=== PATIENT | female | born 1995 | race Caucasian/White ===

== ENCOUNTER 2018-11-07 08:53 | Emergency (ER) | payer OTHER ==
[~2018-11-07] VITALS: Ht 165.1 cm; Wt 129.8 kg
[~2018-11-07 08:53] MED LIST: LEVA15HF6 IH; NORE-92 PO
[2018-11-07 09:10] VITALS: Ht 165.1 cm; Wt 129.8 kg
[2018-11-07] MEDS ORDERED: ALBUTEROL 0.083% (NEB) 2.5 MG/3 ML AMP HHN STA (10:01)
[2018-11-07] MEDS ORDERED: IPRATROPIUM (NEB) 0.5 MG/2.5 ML AMP HHN ONE (10:30)
[2018-11-07] MEDS ORDERED: DEXAMETHASONE 10 MG/ML 1 ML INJ IM ONE (10:30)
[2018-11-07] MEDS ORDERED: CEFTRIAXONE 1 GM INJ IM ONE (12:30)
[2018-11-07] MEDS ORDERED: LIDOCAINE 1% (MPF) 5 ML VIAL INJ ONE (12:30)
[2018-11-07] MEDS ORDERED: MED4DP PO (13:20)
[2018-11-07] MEDS ORDERED: CIPR500T4 PO (13:20)
[2018-11-07] MEDS ORDERED: ALBU8.5H8 INH (13:20)
[2018-11-07] MEDS ORDERED: NORE-92 PO (13:20)
[2018-11-07 13:24] VITALS: BP 144/82; PULSE 72; RESP 20
--- NOTE | 2018-11-07 13:27 | ERD ---
ER Documentation Chief Complaint Chief Complaint Complains of vag bleed with SOB x 1 week HPI 22-year-old female presenting with vaginal bleeding with shortness of breath. Patient states that she has had vaginal bleeding on and off for the last few weeks with passing clots. She has some diffuse pain no lateralized pain. She does not think she is . Patient is also complaining of bronchitis with shortness of breath. She is currently taking azithromycin with no alleviation and denies any fevers. No history of asthma. Denies medical problems. NKDA. Surgical history denies. Social history denies ROS All systems reviewed and are negative except as per history of present illness. Medications Home Meds Active Scripts Norethindrone AC-Eth Estradiol (Loestrin 21 1-20 Tablet) 1 Each Tablet, 1 EACH PO DAILY, #28 TAB Prov:MASSIMO KNOTT PA-C 11/07/18 Methylprednisolone* (Medrol* DOSE PACK) 4 Mg/Dose-Pack Tab.ds.pk, 4 MG PO . DIRECTED, #1 PACKET Prov:MASSIMO KNOTT PA-C 11/07/18 Albuterol Sulfate* (Proair HFA*) 8.5 Gm Hfa.aer.ad, 2 PUFF INH Q4, #1 INHALER Prov:MASSIMO KNOTT PA-C 11/07/18 Ciprofloxacin Hcl* (Ciprofloxacin Hcl*) 500 Mg Tablet, 500 MG PO BID for 7 Days, TAB Prov:MASSIMO KNOTT PA-C 11/07/18 Norethindrone A-E Estradiol (Loestrin) 1 Tab Tablet, 1 TAB PO DAILY, #30 TAB 3 packs Prov:MC OSWALD MD 06/17/15 Reported Medications Levalbuterol* (Xopenex* HFA) 15 Gm Inha, 15 GM IH PRN 05/27/11 Allergies Allergies: Coded Allergies: No Known Allergy (Unverified , 05/11/14) PMhx/Soc History of Surgery: Yes (Ear ) Anesthesia Reaction: No Hx Neurological Disorder: No Hx Respiratory Disorders: No Hx Cardiac Disorders: No Hx Psychiatric Problems: No Hx Miscellaneous Medical Probl: No Hx Alcohol Use: No Hx Substance Use: No Hx Tobacco Use: No FmHx Family History: No diabetes, No coronary disease, No other Physical Exam Vitals Vital Signs Date Temp Pulse Resp B/P (MAP) Pulse Ox O2 O2 Flow FiO2 Time Delivery Rate 11/07/18 79 20 95 21 10:35 11/07/18 98.0 74 20 181/84 97 09:10 (116) Physical Exam GENERAL: The patient is well-appearing, well-nourished, in no acute distress HEENT: Atraumatic. Conjunctivae are pink. Pupils equal, round, and reactive to light. There is no scleral icterus. Tympanic membranes clear bilaterally. Oropharynx clear. NECK: C-spine is soft and supple. There is no meningismus. There is no c ervical lymphadenopathy. CHEST: Clear to auscultation bilaterally. There are no rales, wheezes or rhonchi. HEART: Regular rate and rhythm. No murmurs, clicks, rubs or gallops. ABDOMEN:Soft, nontender and nondistended. Good bowel sounds. No rebound or guarding. No gross peritonitis. No gross organomegaly or masses. Result Diagram: 11/07/18 1030 11/07/18 1030 Results 24 hrs Laboratory Tests Test 11/07/18 10:02 11/07/18 10:30 11/07/18 10:31 Urine Color RED Urine Clarity CLOUDY Urine pH 6.0 Urine Specific [place] 1.018 Urine Ketones NEGATIVE mg/dL Urine Nitrite NEGATIVE mg/dL Urine Bilirubin NEGATIVE mg/dL Urine Urobilinogen NEGATIVE mg/dL Urine Leukocyte Esterase TRACE [place]/ul Urine Microscopic RBC > 182 /HPF Urine Microscopic WBC > 182 /HPF Urine Bacteria MODERATE /HPF Urine Hemoglobin 3+ mg/dL Urine Glucose 1+ mg/dL Urine Total Protein 2+ mg/dl White Blood Count 15.8 10^3/ul Red Blood Count 4.84 10^6/ul Hemoglobin 11.2 g/dl Hematocrit 37.0 % Mean Corpuscular Volume 76.4 fl Mean Corpuscular Hemoglobin 23.1 pg Mean Corpuscular 30.3 g/dl Hemoglobin Concent Red Cell Distribution Width 16.6 % Platelet Count 285 10^3/UL Mean Platelet Volume 10.3 fl Immature Granulocytes % 0.600 % Neutrophils % 64.7 % Lymphocytes % 18.1 % Monocytes % 4.5 % Eosinophils % 11.7 % Basophils % 0.4 % Nucleated Red Blood Cells % 0.0 /100WBC Immature Granulocytes # 0.100 10^3/ul Neutrophils # 10.2 10^3/ul Lymphocytes # 2.9 10^3/ul Monocytes # 0.7 10^3/ul Eosinophils # 1.9 10^3/ul Basophils # 0.1 10^3/ul Nucleated Red Blood Cells # 0.0 10^3/ul Sodium Level 141 mmol/L Potassium Level 4.1 mmol/L Chloride Level 108 mmol/L Carbon Dioxide Level 24 mmol/L Anion Gap 9 Blood Urea Nitrogen 13 mg/dl Creatinine 0.50 mg/dl Est Glomerular Filtrat > 60 mL/min Rate mL/min Glucose Level 84 mg/dl Calcium Level 9.4 mg/dl Total Bilirubin 0.1 mg/dl Direct Bilirubin 0.00 mg/dl Indirect Bilirubin 0.1 mg/dl Aspartate Amino 22 IU/L Transf (AST/SGOT) Alanine 13 IU/L Aminotransferase (ALT/SGPT) Alkaline Phosphatase 72 IU/L Total Protein 7.5 g/dl Albumin 4.1 g/dl Globulin 3.40 g/dl Albumin/Globulin Ratio 1.20 Lipase 58 U/L POC Beta HCG, Qualitative NEGATIVE Current Medications Medications Dose Sig/Ping Start Time Status Last (Trade) Ordered Route PRN Stop Time Admin Dose Reason Admin Albuterol 5 mg ONCE STAT 11/07/18 DC 11/07/18 (Proventil HHN 10:01 10:42 0.083% (Neb)) 11/07/18 10:04 Ipratropium 0.5 mg ONCE ONCE 11/07/18 DC 11/07/18 [place] HHN 10:30 10:42 (Atrovent 11/07/18 10:31 0.02% (Neb)) 10 mg ONCE ONCE 11/07/18 DC 11/07/18 Dexamethasone IM 10:30 10:38 (Decadron) 11/07/18 10:31 Ceftriaxone 1 gm ONCE ONCE 11/07/18 DC 11/07/18 Sodium IM 12:30 13:21 (Rocephin) 11/07/18 12:31 Lidocaine 5 ml ONCE ONCE 11/07/18 DC 11/07/18 (Xylocaine INJ 12:30 13:21 1% (Mpf)) 11/07/18 12:31 Procedures/MDM ER course: Albuterol Atrovent breathing should be given ED. DIAGNOSTIC IMAGING REPORT Patient: EDITH LOZA : 1995 Age: 22 Sex: F MR #: [id number] DOS: 11/07/18 0000 Ordering MD: ZEESHAN KNOTT PA-C Location: [facility] Room/Bed: PROCEDURE: US Pelvis. CLINICAL INDICATION: pelvic pain TECHNIQUE: Multiple sonographic images of the pelvis were obtained utilizing transabdominal technique. The images were reviewed on a PACS workstation. COMPARISON: None. FINDINGS: The study is limited due to the patient's body habitus. The uterus is normal in size with a normal appearance of the myometrium. The uterus measures 9.2 x 3.4 x 4.9 cm. The endometrial stripe is homogeneous in appearance and has the thickness of 4 mm. The ovaries are not well seen. There is a 2.4 cm cystic structure adjacent to the cervix which may represent a left ovarian cyst. No free fluid is present within the pelvis. RPTAT: AA IMPRESSION: Limited study. Possible small left ovarian cyst measuring 2.4 cm. MDM: 22-year-old female presenting with vaginal bleeding and shortness of breath. Patient will be discharged with supportive medications for vaginal bleeding. Her hemoglobin is stable and exam is non-concerning. Patient does ponce ve findings consistent with urinary tract infection so we will treat with antibiotics. I have low suspicion for respiratory distress or hypoxia. I have low suspicion for pneumonia. Patient is discharged stricter precautions and told to follow-up with primary care within 1-2 days for close evaluation. Patient is told if symptoms change or worsen to return immediately to the ER. All questions answered at discharge Departure Diagnosis: Primary Impression: Wheezy bronchitis Additional Impression: Vaginal bleeding Condition: Stable Patient Instructions: Bronchitis With Wheezing (Adult), Menorrhagia Referrals: COMMUNITY CLINICS YOU HAVE RECEIVED A MEDICAL SCREENING EXAM AND THE RESULTS INDICATE THAT YOU DO NOT HAVE A CONDITION THAT REQUIRES URGENT TREATMENT IN THE EMERGENCY DEPARTMENT. FURTHER EVALUATION AND TREATMENT OF YOUR CONDITION CAN WAIT UNTIL YOU ARE SEEN IN YOUR DOCTORS OFFICE WITHIN THE NEXT 1-2 DAYS. IT IS YOUR RESPONSIBILITY TO MAKE AN APPOINTMENT FOR FOLOW-UP CARE. IF YOU HAVE A PRIMARY DOCTOR --you should call your primary doctor and schedule an appointment IF YOU DO NOT HAVE A PRIMARY DOCTOR YOU CAN CALL OUR PHYSICIAN REFERRAL HOTLINE AT IF YOU CAN NOT AFFORD TO SEE A PHYSICIAN YOU CAN CHOSE FROM THE FOLLOWING [facility] [address] [facility] [address] [facility] [facility] [address] [facility] [address] [facility]. [facility] [phone] [id number] [facility]. [facility] [address] Additional Instructions: FOLLOW UP WITH YOUR PRIMARY CARE PHYSICIAN TOMORROW.Return to this facility if you are not improving as expected. MASSIMO KNOTT PA-C Nov 07, 2018 13:27
== END 2018-11-07 13:25 | disposition home or self-care (01) ==
LOC: FTE 08:53
DX: N93.9 Abnormal uterine and vaginal bleeding, unspecified (principal); J40 Bronchitis, not specified as acute or chronic; R10.2 Pelvic and perineal pain
CPT/HCPCS: 76856; 80053; 81001; 81025; 83690; 85025; 94664; 96372; J0696; J1100; Z7502; Z7610